=== PATIENT | male | born 1995 | race Caucasian/White ===

== ENCOUNTER 2017-12-16 17:00 | Emergency (ER) | payer BC, OTHER ==
[2017-12-16 17:18] VITALS: BP 124/76
--- NOTE | 2017-12-16 17:28 | UC ---
UC General HPI - HPI Summary HPI Summary: patient had a head cold beginning 6 days ago---symptoms have now resolved and needs a note to return to work. healthy now no fevers , n/v/d body aches rashes or c/o - History of Current Complaint Chief Complaint: UCGeneralIllness Stated Complaint: WORK NOTE Time Seen by Provider: 12/16/17 17:12 Hx Obtained From: Patient Onset/Duration: Sudden Onset, Resolved Pain Intensity: 0 - Allergy/Home Medications Allergies/Adverse Reactions: Allergies Allergy/AdvReac Type Severity Reaction Status Date / Time No Known Allergies Allergy Verified 12/16/17 17:17 PMH/Surg Hx/FS Hx/Imm Hx Previously Healthy: Yes - Surgical History Surgical History: Yes Surgery Procedure, Year, and Place: [facility]ERNIA SURGERY [facility] [place] 2012. tonsillectomy - Family History Known Family History: Positive: None - Social History Occupation: Employed Full-time Lives: With Family Alcohol Use: Occasionally Substance Use Type: Marijuana Smoking Status (MU): Former Smoker Review of Systems Constitutional: Negative Skin: Negative Eyes: Negative ENT: Negative Respiratory: Negative Cardiovascular: Negative Gastrointestinal: Negative Genitourinary: Negative Motor: Negative Neurovascular: Negative Musculoskeletal: Negative Neurological: Negative Psychological: Negative Is Patient Immunocompromised?: No All Other Systems Reviewed And Are Negative: Yes Physical Exam Triage Information Reviewed: Yes Appearance: Well-Appearing, No Pain Distress, Well-Nourished Vital Signs: Initial Vital Signs Temp 98.8 F 12/16/17 17:08 Pulse 78 12/16/17 17:08 Resp 16 12/16/17 17:08 BP 124/76 12/16/17 17:08 Pulse Ox 98 12/16/17 17:08 Vital Signs Reviewed: Yes Eye Exam: Normal Eyes: Positive: Conjunctiva Clear ENT Exam: Normal ENT: Positive: Normal ENT inspection, Hearing grossly normal. Negative: Trismus , Muffled voice, Hoarse voice Dental Exam: Normal Neck exam: Normal Neck: Positive: Supple, Nontender Respiratory Exam: Normal Respiratory: Positive: Chest non-tender, No respiratory distress, No accessory muscle use Cardiovascular Exam: Normal Cardiovascular: Positive: RRR, Brisk Capillary Refill Musculoskeletal Exam: Normal Musculoskeletal: Positive: Strength Intact, ROM Intact, No Edema Neurological Exam: Normal Neurological: Positive: Alert, Muscle Tone Normal Psychological Exam: Normal Skin Exam: Normal Course/Dx - Course Course Of Treatment: healthy and with no c/o may return to work - Differential Dx - Multi-Symptom Provider Diagnoses: resolved URI, Healthy Discharge - Sign-Out/Discharge Documenting (check all that apply): Discharge/Admit/Transfer - Discharge Plan Condition: Stable Disposition: HOME Forms: *Work Release Referrals: Ranulfo Ocasio MD [Primary Care Provider] - If Needed - Billing Disposition and Condition Condition: STABLE Disposition: HOME
== END 2017-12-16 17:27 | disposition home or self-care (01) ==
LOC: UCEAST 17:00
DX: J06.9 Acute upper respiratory infection, unspecified (principal)
CPT/HCPCS: 99211; G0463

== ENCOUNTER 2019-10-24 21:46 | Emergency (ER) | payer OTHER ==
--- NOTE | 2019-10-24 23:54 | ED ---
GI/ HPI - HPI Summary HPI Summary: Patient complains of pain in the left testicle 1 week. Pain originally started about 15 minutes after lifting a bag of cat N. Pain has been intermittent, worse with certain positions and activities. Patient had negative ultrasound on 10/22. Patient had surgical evaluation on 10/23 stated no hernia present. Patient states sudden onset increase in pain tonight around 9: 00 AM. Patient is taking ibuprofen without relief. Denies fever, cough, sore throat, CP, SOB, N/V/D, abdominal pain, change in urine, penile discharge, change in BM. Medical history is none. - History of Current Complaint Chief Complaint: EDUrogenitalProblems Time Seen by Provider: 10/24/19 23:52 Stated Complaint: PAIN IN LT TESTICLE PER PT Hx Obtained From: Patient Onset/Duration: Started Days Ago Timing: Intermittent, Lasting Minutes Severity: Severe Current Severity: Mild Pain Intensity: 5 Location of Pain: Other Additional Locations for Males: Testicles Pain Characteristics: Sharp, Cramping Associated Signs and Symptoms: Positive: Negative - Allergy/Home Medications Allergies/Adverse Reactions: Allergies Allergy/AdvReac Type Severity Reaction Status Date / Time hydrocodone Allergy Unknown Verified 10/25/19 00:26 Reaction Details Home Medications: Home Medications Oxycodone HCl 5 mg PO Q6H 4 Days #16 tablet MDD 4 tabs 10/25/19 [Rx] PMH/Surg Hx/FS Hx/Imm Hx Endocrine/Hematology History: Denies: Hx Anticoagulant Therapy Cardiovascular History: Denies: Hx Pacemaker/ICD Respiratory History: Denies: Hx Chronic Obstructive Pulmonary Disease (COPD) History: Denies: Hx Dialysis Sensory History: Denies: Hx Contacts or Glasses, Hx Hearing Aid Opthamlomology History: Denies: Hx Contacts or Glasses EENT History: Denies: Hx Deafness Neurological History: Denies: Hx Dementia - Surgical History Surgery Procedure, Year, and Place: [facility] [place] 2012. tonsillectomy Hx Anesthesia Reactions: No Infectious Disease History: No Infectious Disease History: Denies: Traveled Outside the [place] in Last 30 Days - Family History Known Family History: Positive: None - Social History Alcohol Use: Occasionally Substance Use Type: Reports: Marijuana Smoking Status (MU): Former Smoker Review of Systems Constitutional: Negative Eyes: Negative ENT: Negative Cardiovascular: Negative Respiratory: Negative Gastrointestinal: Negative Positive: other Musculoskeletal: Negative Skin: Negative Neurological/Mental Status: Negative Psychological: Normal All Other Systems Reviewed And Are Negative: Yes Physical Exam - Summary Physical Exam Summary: No erythema, ecchymosis, deformity, swelling noted to genitals or groin or inguinal creases. Most tender to palpation at the bottom of left testicle with some mild tenderness deep and laterally towards inguinal canal. No evidence of hernia on physical exam. Otherwise normal exam of genitalia. Triage Information Reviewed: Yes Vital Signs On Initial Exam: Initial Vitals Temp Pulse Resp BP Pulse Ox 97.5 F 108 20 135/90 98 10/24/19 21:46 10/24/19 21:46 10/24/19 21:46 10/24/19 21:46 10/24/19 21:46 Vital Signs Reviewed: Yes Appearance: Positive: Well-Appearing Skin: Positive: Warm Head/Face: Positive: Normal Head/Face Inspection Eyes: Positive: Normal Neck: Positive: Supple Respiratory/Lung Sounds: Positive: Clear to Auscultation Cardiovascular: Positive: Normal Abdomen Description: Positive: Nontender Male Genital Exam: Positive: Normal Genitalia, Inguinal Tenderness, Testicular Tenderness (L). Negative: Epididymal Tenderness, Erythema, Hernia Mass, Scrotum Tenderness (R), Testicular Tenderness (R), Urethral Discharge Musculoskeletal: Positive: Normal Neurological: Positive: Normal Psychiatric: Positive: Normal AVPU Assessment: Alert - [place] Coma Scale Best Eye Response: 4 - Spontaneous Best Motor Response: 6 - Obeys Commands Best Verbal Response: 5 - Oriented Coma Scale Total: 15 Procedures - Sedation Patient Received Moderate/Deep Sedation with Procedure: No Diagnostics - Vital Signs Vital Signs Temp Pulse Resp BP Pulse Ox 10/24/19 21:46 97.5 F 108 20 135/90 98 - Laboratory Lab Statement: Any lab studies that have been ordered have been reviewed, and results considered in the medical decision making process. GIGU Course/Dx - Course Course Of Treatment: Patient complains of pain in the left testicle 1 week. Pain originally started about 15 minutes after lifting a bag of cat N. Pain has been intermittent, worse with certain positions and activities. Patient had negative ultrasound on 10/22. Patient had surgical evaluation on 10/23 stated no hernia present. Patient states sudden onset increase in pain tonight around 9:00 AM. Patient is taking ibuprofen without relief. Denies fever, cough, sore throat, CP, SOB, N/V/D, abdominal pain, change in urine, penile discharge, change in BM. Medical history is none. Vital signs within normal limits. Ultrasound of testicles negative. Patient will follow-up with urology. - Diagnoses Provider Diagnoses: Left testicular pain Discharge ED - Sign-Out/Discharge Documenting (check all that apply): Patient Departure - Discharge Plan Condition: Stable Disposition: HOME Prescriptions: Oxycodone HCl 5 mg PO Q6H 4 Days #16 tablet MDD 4 tabs Patient Education Materials: Testicle Pain (ED) Referrals: No Primary Care Phys,NOPCP [Primary Care Provider] - Forrest Ibanez MD [Medical Doctor] - Additional Instructions: Alternate ibuprofen 600 mg with Tylenol 650 mg every 3 hours as needed for pain. You may also take oxycodone as directed if needed for breakthrough pain. Follow-up with urology Dr Ibanez on Sunday morning. Return to the ED for any new or worsening symptoms. - Billing Disposition and Condition Condition: STABLE Disposition: Home
[2019-10-25] MEDS ORDERED: oxyCODONE TAB* 5 MG TAB PO ONE ×2 (00:17→00:59)
[2019-10-25] MEDS ORDERED: Ketorolac INJ* 30 MG/ML 1 ML VIAL IM ONE (00:59)
[2019-10-25 02:14] VITALS: BP 133/71
== END 2019-10-25 01:58 | disposition home or self-care (01) ==
LOC: ED 21:46
DX: N50.812 Left testicular pain (principal); Z87.891 Personal history of nicotine dependence
CPT/HCPCS: 76870; 96372; 99283; A9270-GY; J1885

== ENCOUNTER 2020-04-12 06:48 | Inpatient (IN) ==
[2020-04-12 08:05] LABS: ALT 31 U/L (7-52); AST 22 U/L (13-39); Albumin 4.5 g/dL (3.2-5.2); Alkaline Phosphatase 73 U/L (34-104); Anion Gap 8 mmol/L (2-11); BUN/Creatinine Ratio 20.8 (8-20); Blood Urea Nitrogen 20 mg/dL (6-24); CO2 Carbon Dioxide 21 mmol/L (22-32); Calcium 9.1 mg/dL (8.6-10.3); Chloride 108 mmol/L (101-111); EGFR African American 115.5 (>60); EGFR Non-African American 95.4 (>60); Globulin 2.2 g/dL (2-4); Glucose 105 mg/dL (70-100); Sodium 137 mmol/L (135-145); Total Protein 6.7 g/dL (6.4-8.9)
[2020-04-12 08:14] LABS: ABS Basophils 0.1 10^3/ul (0-0.2); ABS Eosinophils 0.3 10^3/ul (0-0.6); ABS Lymphocytes 1.8 10^3/ul (1.0-4.8); ABS Monocytes 0.5 10^3/ul (0-0.8); ABS Neutrophils 4.4 10^3/ul (1.5-7.7); Eosinophil % 4.2 %; Hematocrit 45 % (42-52); Hemoglobin 15.6 g/dL (14.0-18.0); Lymphocyte % 25.3 %; Mean Corpuscular HGB Conc 35 g/dL (31-36); Mean Corpuscular Hemoglobin 30 pg (27-31); Mean Corpuscular Volume 86 fL (80-94); Mean Platelet Volume 7.6 fL (7.4-10.4); Nucleated Red Blood Cells % 0.1; Platelet Count 244 10^3/uL (150-450); Red Blood Count 5.25 10^6 /uL (4.18-5.48); Red Cell Distribution Width 13 % (10-15)
[2020-04-12 08:41] LABS: Acetaminophen < 15 mcg/mL; Alcohol, S < 10 mg/dL (<10); Salicylate < 2.50 mg/dL (<30)
[2020-04-12] MEDS ORDERED: Al Hydrox/Mg Hydrox/Simet LIQ 30 ML UDC PO PRN (10:26)
[2020-04-12 11:43] LABS: Urine Appearance Clear; Urine Bilirubin Negative (Negative); Urine Blood Negative (Negative); Urine Color Yellow; Urine Glucose Negative (Negative); Urine Ketones Negative (Negative); Urine Nitrite Negative (Negative); Urine Protein Negative (Negative); Urine Specific Gravity 1.018 (1.010-1.030); Urine Urobilinogen Negative (Negative)
[2020-04-12 12:16] LABS: Urine Benzodiazepine Screen None Detected (None Detect); Urine Cannabinoids Screen Presumptive Positive (None Detect); Urine Opiates Screen None Detected (None Detect)
[2020-04-13 07:18] LABS: HDL Cholesterol 38.8 mg/dL
[2020-04-14] MEDS ORDERED: Venlafaxine XR 75 mg PO SCH (09:00)
[2020-04-16 08:52] VITALS: BP 134/69
== END 2020-04-16 12:25 | disposition home or self-care (01) | DRG 751 ==
LOC: ED 06:48 → BSU 13:55
PROVIDERS: ADMIT Psychiatry & Neurology Psychiatry; ATTEND Psychiatry & Neurology Psychiatry

== ENCOUNTER 2021-01-21 14:43 | Inpatient (IN) ==
[2021-01-21 15:26] LABS: ABS Basophils 0.1 10^3/ul (0-0.2); ABS Eosinophils 0.2 10^3/ul (0-0.6); ABS Lymphocytes 3.9 10^3/ul (1.0-4.8); ABS Monocytes 1.5 10^3/ul (0-0.8); ABS Neutrophils 10.9 10^3/ul (1.5-7.7); Eosinophil % 0.9 %; Hematocrit 48 % (42-52); Hemoglobin 16.6 g/dL (14.0-18.0); Lymphocyte % 23.6 %; Mean Corpuscular HGB Conc 35 g/dL (31-36); Mean Corpuscular Hemoglobin 30 pg (27-31); Mean Corpuscular Volume 86 fL (80-94); Mean Platelet Volume 7.1 fL (7.4-10.4); Platelet Count 346 10^3/uL (150-450); Red Blood Count 5.55 10^6 /uL (4.18-5.48); Red Cell Distribution Width 13 % (10-15); White Blood Count 16.5 10^3/uL (3.5-10.8)
[2021-01-21 15:29] LABS: Urine Appearance Cloudy; Urine Bilirubin Negative (Negative); Urine Blood Negative (Negative); Urine Color Yellow; Urine Glucose Negative (Negative); Urine Ketones Negative (Negative); Urine Nitrite Negative (Negative); Urine Protein Negative (Negative); Urine Specific Gravity 1.027 (1.002-1.030); Urine Urobilinogen Negative (Negative)
[2021-01-21 15:42] LABS: ALT 18 U/L (7-52); AST 18 U/L (13-39); Albumin/Globulin Ratio 1.7 (1-3); Alkaline Phosphatase 84 U/L (35-149); Anion Gap 10 mmol/L (2-11); Blood Urea Nitrogen 12 mg/dL (6-24); CO2 Carbon Dioxide 19 mmol/L (22-32); Calcium 9.6 mg/dL (8.6-10.3); Chloride 109 mmol/L (101-111); EGFR Non-African American 103.3 (>60); Globulin 2.9 g/dL (2-4); Glucose 122 mg/dL (70-100); Sodium 138 mmol/L (135-145); Total Protein 7.9 g/dL (6.4-8.9)
[2021-01-21 15:53] LABS: Urine Benzodiazepine Screen None Detected (None Detect); Urine Cannabinoids Screen Presumptive Positive (None Detect); Urine Opiates Screen None Detected (None Detect)
[2021-01-21 16:15] LABS: Acetaminophen < 15 mcg/mL; Alcohol, S < 10 mg/dL (<10); Salicylate < 2.50 mg/dL (<30)
[2021-01-22] MEDS ORDERED: Al Hydrox/Mg Hydrox/Simet LIQ 30 ML UDC PO PRN ×2 (00:25→13:24)
[2021-01-22] MEDS ORDERED: Nicotine GUM 2MG FRUIT FLAVOR PO PRN (01:00)
[2021-01-22] MEDS ORDERED: Vitamin THERAPEUTIC TAB PO SCH (09:00)
[2021-01-22] MEDS: Nicotine GUM 2MG FRUIT FLAVOR PO PRN (19:27)
[2021-01-22] MEDS: Ciproflox/Dexameth OTIC.SUSP 7.5 ML BTL LEFT EAR SCH (20:50)
[2021-01-23] MEDS: Ciproflox/Dexameth OTIC.SUSP 7.5 ML BTL LEFT EAR SCH ×2 (08:43→20:13)
[2021-01-23] MEDS: Vitamin THERAPEUTIC TAB PO SCH (08:44)
[2021-01-23 09:13] LABS: ABS Basophils 0.1 10^3/ul (0-0.2); ABS Eosinophils 0.3 10^3/ul (0-0.6); ABS Lymphocytes 2.1 10^3/ul (1.0-4.8); ABS Monocytes 0.7 10^3/ul (0-0.8); ABS Neutrophils 4.8 10^3/ul (1.5-7.7); Eosinophil % 3.6 %; Hematocrit 42 % (42-52); Hemoglobin 14.9 g/dL (14.0-18.0); Lymphocyte % 26.5 %; Mean Corpuscular HGB Conc 35 g/dL (31-36); Mean Corpuscular Hemoglobin 30 pg (27-31); Mean Corpuscular Volume 87 fL (80-94); Mean Platelet Volume 7.1 fL (7.4-10.4); Platelet Count 265 10^3/uL (150-450); Red Blood Count 4.91 10^6 /uL (4.18-5.48); Red Cell Distribution Width 13 % (10-15)
[2021-01-23] MEDS: Nicotine GUM 4MG FRUIT FLAVOR PO PRN ×3 (10:50→17:48)
[2021-01-24 07:15] LABS: HDL Cholesterol 35.4 mg/dL
[2021-01-24] MEDS: Vitamin THERAPEUTIC TAB PO SCH (07:50)
[2021-01-24] MEDS: Nicotine GUM 2MG FRUIT FLAVOR PO PRN ×3 (07:52→17:54)
[2021-01-24] MEDS: Ciproflox/Dexameth OTIC.SUSP 7.5 ML BTL LEFT EAR SCH ×2 (07:52→20:18)
[2021-01-24] MEDS: Nicotine GUM 4MG FRUIT FLAVOR PO PRN (20:58)
[2021-01-25] MEDS: Nicotine GUM 4MG FRUIT FLAVOR PO PRN ×4 (07:27→17:33)
[2021-01-25] MEDS: Ciproflox/Dexameth OTIC.SUSP 7.5 ML BTL LEFT EAR SCH ×2 (07:28→20:29)
[2021-01-25 08:41] LABS: % Iron Saturation 33 % (15-55); Iron 102 ug/dL (50-212); Total Iron Binding Capacity 312 mcg/dL (250-450); Transferrin 223 mg/dL (203-362); Unsaturated Iron Binding < 297 ug/dL
[2021-01-25] MEDS: Vitamin THERAPEUTIC TAB PO SCH (09:59)
[2021-01-25 10:07] LABS: HIV 4th Generation Nonreactive (Nonreactive)
[2021-01-25] MEDS: buPROPion SR 100 mg TAB.SR PO SCH (12:07)
[2021-01-25] MEDS: Nicotine GUM 2MG FRUIT FLAVOR PO PRN (20:31)
[2021-01-26] MEDS: Ciproflox/Dexameth OTIC.SUSP 7.5 ML BTL LEFT EAR SCH ×2 (08:46→20:14)
[2021-01-26] MEDS: Nicotine GUM 4MG FRUIT FLAVOR PO PRN ×4 (08:46→20:14)
[2021-01-26] MEDS: Vitamin THERAPEUTIC TAB PO SCH (08:46)
[2021-01-26] MEDS: buPROPion SR 100 mg TAB.SR PO SCH (08:46)
[2021-01-26] MEDS: Nicotine GUM 2MG FRUIT FLAVOR PO PRN (17:30)
[2021-01-27] MEDS: Ciproflox/Dexameth OTIC.SUSP 7.5 ML BTL LEFT EAR SCH ×2 (08:43→20:01)
[2021-01-27] MEDS: Nicotine GUM 4MG FRUIT FLAVOR PO PRN ×3 (08:44→21:46)
[2021-01-27] MEDS: buPROPion SR 100 mg TAB.SR PO SCH (08:44)
[2021-01-27] MEDS: Vitamin THERAPEUTIC TAB PO SCH (08:44)
[2021-01-27] MEDS: Nicotine GUM 2MG FRUIT FLAVOR PO PRN (17:59)
[2021-01-28] MEDS: Vitamin THERAPEUTIC TAB PO SCH (08:47)
[2021-01-28] MEDS: Ciproflox/Dexameth OTIC.SUSP 7.5 ML BTL LEFT EAR SCH ×2 (08:52→19:44)
[2021-01-28] MEDS: Nicotine GUM 4MG FRUIT FLAVOR PO PRN ×2 (08:54→17:27)
[2021-01-28] MEDS: Nicotine GUM 2MG FRUIT FLAVOR PO PRN ×2 (12:37→19:44)
[2021-01-29] MEDS: Vitamin THERAPEUTIC TAB PO SCH (08:41)
[2021-01-29] MEDS: Ciproflox/Dexameth OTIC.SUSP 7.5 ML BTL LEFT EAR SCH ×2 (08:41→19:48)
[2021-01-29] MEDS: Nicotine GUM 2MG FRUIT FLAVOR PO PRN ×4 (08:43→19:50)
[2021-01-29] MEDS: Nicotine GUM 4MG FRUIT FLAVOR PO PRN (14:54)
[2021-01-30] MEDS: Ciproflox/Dexameth OTIC.SUSP 7.5 ML BTL LEFT EAR SCH ×2 (09:19→21:18)
[2021-01-30] MEDS: Vitamin THERAPEUTIC TAB PO SCH (09:19)
[2021-01-30] MEDS: Nicotine GUM 4MG FRUIT FLAVOR PO PRN ×3 (09:22→19:00)
[2021-01-30] MEDS: Nicotine GUM 2MG FRUIT FLAVOR PO PRN (12:25)
[2021-01-31] MEDS: Vitamin THERAPEUTIC TAB PO SCH (08:40)
[2021-01-31] MEDS: Ciproflox/Dexameth OTIC.SUSP 7.5 ML BTL LEFT EAR SCH ×2 (08:40→19:58)
[2021-01-31] MEDS: Nicotine GUM 4MG FRUIT FLAVOR PO PRN ×5 (08:41→19:50)
[2021-02-01] MEDS: Ciproflox/Dexameth OTIC.SUSP 7.5 ML BTL LEFT EAR SCH (08:34)
[2021-02-01] MEDS: Vitamin THERAPEUTIC TAB PO SCH (08:34)
[2021-02-01] MEDS: Nicotine GUM 4MG FRUIT FLAVOR PO PRN (08:35)
[2021-02-01 10:52] VITALS: BP 128/82
== END 2021-02-01 13:39 | disposition home health service (06) | DRG 751 ==
LOC: ED 14:43 → BSU 17:30 → ED 22:16 → BSU 01-22 09:52
PROVIDERS: ADMIT Psychiatry & Neurology Psychiatry; ATTEND Psychiatry & Neurology Psychiatry

== ENCOUNTER 2023-08-09 00:20 | Inpatient (IN) ==
[2023-08-09 02:50] LABS: ABS Eosinophils 0.1 10^3/uL (0.0-0.5); ABS Lymphocytes 2.1 10^3/uL (1.0-4.8); ABS Monocytes 0.5 10^3/uL (0.0-1.1); ABS Neutrophils 3.7 10^3/uL (1.5-7.6); ABS Nucleated RBC 0.02 10^3/ul; Eosinophil % 1.8 %; Hemoglobin 15.1 g/dL (13.2-16.3); Lymphocyte % 32.7 %; Mean Corpuscular Hemoglobin 30.3 pg (27-33); Mean Corpuscular Hgb Conc 33.7 g/dL (31-36); Mean Corpuscular Volume 90.1 fL (80-97); Mean Platelet Volume 7.2 fL (7.5-11.2); Nucleated Red Blood Cells % 0.3 %/100WBC (0.0-0.8); Platelet Count 214 10^3/uL (150-450); Red Blood Count 4.99 10^6/uL (4.06-5.63); Red Cell Distribution Width 13.5 % (12-17); White Blood Count 6.4 10^3/uL (3.6-10.2)
[2023-08-09 02:51] LABS: Urine Appearance Clear; Urine Bilirubin Negative (Negative); Urine Blood Negative (Negative); Urine Color Amber; Urine Glucose Negative (Negative); Urine Ketones 1+ (Negative); Urine Nitrite Negative (Negative); Urine Protein Negative (Negative); Urine Specific Gravity 1.027 (1.002-1.030); Urine Urobilinogen Positive (Negative)
[2023-08-09 03:03] LABS: ALT 12 U/L (7-52); AST 15 U/L (13-39); Albumin 4.5 g/dL (3.2-5.2); Albumin/Globulin Ratio 1.7 (1-3); Alkaline Phosphatase 62 U/L (35-149); Anion Gap 9 mmol/L (2-16); Blood Urea Nitrogen 9 mg/dL (6-24); CO2 Carbon Dioxide 21 mmol/L (22-32); Calcium 9.2 mg/dL (8.6-10.3); Chloride 107 mmol/L (101-111); Creatinine, Serum 0.91 mg/dL (0.67-1.17); Globulin 2.7 g/dL (2-4); Glucose 90 mg/dL (70-100); Potassium 3.6 mmol/L (3.5-5.0); Sodium 137 mmol/L (135-145); Total Bilirubin 0.5 mg/dL (0.2-1.0); Total Protein 7.2 g/dL (6.4-8.9); eGFR CKD-EPI 117.7 (>60)
[2023-08-09 03:16] LABS: Urine Benzodiazepine Screen None Detected (None Detect); Urine Cannabinoids Screen Presumptive Positive (None Detect); Urine Opiates Screen None Detected (None Detect)
[2023-08-09 03:22] LABS: Acetaminophen < 15 mcg/mL; Alcohol, S < 13 mg/dL (<13); Salicylate < 2.50 mg/dL (<30)
[2023-08-09 03:36] LABS: TSH Ultra Thyroid Stim Horm 5.08 mcIU/mL (0.34-5.60)
[2023-08-09] MEDS ORDERED: Al Hydrox/Mg Hydrox/Simet LIQ 30 ML UDC PO PRN (06:06)
[2023-08-09] MEDS: Vitamin THERAPEUTIC TAB PO SCH (09:01)
[2023-08-09] MEDS ORDERED: Nicotine GUM 4MG FRUIT FLAVOR PO ONE (09:01)
[2023-08-09] MEDS: Nicotine GUM 4MG FRUIT FLAVOR PO PRN ×3 (09:03→16:42)
[2023-08-09] MEDS: Nicotine PATCH 14 MG/24 HR PATCH TRANSDERM SCH (09:03)
[2023-08-09] MEDS: Nicotine GUM 2MG FRUIT FLAVOR PO PRN (20:09)
[2023-08-10] MEDS: Nicotine PATCH 14 MG/24 HR PATCH TRANSDERM SCH (08:22)
[2023-08-10] MEDS: Nicotine GUM 2MG FRUIT FLAVOR PO PRN ×3 (08:23→19:50)
[2023-08-10] MEDS: Vitamin THERAPEUTIC TAB PO SCH (08:23)
[2023-08-10 08:33] LABS: HDL Cholesterol 32.6 mg/dL
[2023-08-11] MEDS: Nicotine GUM 2MG FRUIT FLAVOR PO PRN ×3 (08:30→15:14)
[2023-08-11] MEDS: Vitamin THERAPEUTIC TAB PO SCH (08:30)
[2023-08-11] MEDS: Nicotine PATCH 14 MG/24 HR PATCH TRANSDERM SCH (12:47)
[2023-08-11] MEDS: Nicotine GUM 4MG FRUIT FLAVOR PO PRN (18:10)
[2023-08-12] MEDS: Nicotine PATCH 14 MG/24 HR PATCH TRANSDERM SCH (09:16)
[2023-08-12] MEDS: Vitamin THERAPEUTIC TAB PO SCH (09:17)
[2023-08-12] MEDS: Nicotine GUM 2MG FRUIT FLAVOR PO PRN ×3 (09:17→19:21)
[2023-08-13] MEDS: Vitamin THERAPEUTIC TAB PO SCH (08:45)
[2023-08-13] MEDS: Nicotine GUM 2MG FRUIT FLAVOR PO PRN ×4 (08:46→20:19)
[2023-08-13] MEDS: Nicotine PATCH 14 MG/24 HR PATCH TRANSDERM SCH (09:37)
[2023-08-14] MEDS: Vitamin THERAPEUTIC TAB PO SCH (08:32)
[2023-08-14] MEDS: Nicotine PATCH 14 MG/24 HR PATCH TRANSDERM SCH (08:33)
[2023-08-14] MEDS: Nicotine GUM 2MG FRUIT FLAVOR PO PRN (08:33)
[2023-08-14 09:33] VITALS: BP 147/87
== END 2023-08-14 13:01 | disposition home or self-care (01) | DRG 754 ==
LOC: ED 00:20 → BSU 05:28
PROVIDERS: ADMIT Psychiatry & Neurology Psychiatry; ATTEND Psychiatry & Neurology Psychiatry